=== PATIENT | female | born 1990 | race Caucasian/White ===

== ENCOUNTER 2020-05-24 06:55 | Inpatient (IN) | payer MEDICAID, SELFPAY ==
[2020-05-24] VITALS (69 sets, daily range): BP systolic 0–128; BP diastolic 0–85; PULSE 46–84; RESP 16–18; TEMP 36.3–37; O2SAT 85–100; BMI 27.6
[2020-05-24 05:12] LABS: Amphetamines Screen Urine Negative (Negative); Barbiturates Screen Urine Negative (Negative); Benzodiazepines Screen Urine Negative (Negative); Cocaine Screen Urine Negative (Negative); Opiate Screen Urine Negative (Negative); PCP Screen Urine Negative (Negative); THC Screen Urine Negative (Negative)
[2020-05-24 07:29] LABS: Basophils % 0.3 %; Eosinophils # 0.1 10^3/uL (0.0-0.8); Eosinophils % 0.6 %; Hemoglobin 10.8 g/dL (11.5-15.3); Lymphocytes # 2.6 10^3/uL (0.8-4.8); Lymphocytes % 21.9 %; Mean Corpuscular HGB Conc 32.7 g/dL (30.0-36.0); Mean Corpuscular Hemoglobin 31.1 pg (28.0-34.0); Mean Corpuscular Volume 95.1 fL (81-99); Mean Platelet Volume 11.6 fL (7.4-10.4); Monocytes # 0.8 10^3/uL (0.2-0.9); Monocytes % 6.7 %; Neutrophils # 8.35 10^3/uL (1.8-7.7); Neutrophils % 69.9 %; Nucleated Red Blood Cells % 0 %; Platelet Count 235 10^3/cmm (130-400); Red Blood Count 3.47 10^6/uL (4.1-5.3); Red Cell Distribution Width 12.6 % (12.1-15.1); White Blood Count 11.9 10^3/uL (4.0-10.0)
[2020-05-24] MEDS: lactated ringers 1,000 ML 999 ML IV (08:07)
--- NOTE | 2020-05-24 08:25 | ANES.PREANE2 ---
Pre-Anesthetic Assessment Pre-Anesthetic Assessment: Height/Weight: Height 1.75 m Weight 84.822 kg Temp Pulse Resp BP Pulse Ox 98.6 F 61 18 117/66 98 05/24/20 04:46 05/24/20 08:22 05/24/20 04:46 05/24/20 08:22 05/24/20 08:22 Preop Diagnosis: IUP Proposed Procedure: epidural Familial anesthetic complications: none Was Beta Avelino taken within 24 hours: N/A Social: Social History: No alcohol and No tobacco Exam: Pre-Anes Outpt Exam: alert, oriented x 3, clear to auscultation bilaterally and regular rate & rhythm Airway: Cervical ROM: WNL MP: 2 Dentition: Full Pulmonary: Pulmonary: None reported CV/HEM: CV/HEM: None reported : : None reported Hepatic: Hepatic: None reported GI: GI: None reported Metabolic: Metabolic: None reported Anesthetic Plan: ASA status: 2 Anesthesia: Regional (specify below) Risk of > 500 ml blood loss (7ml/kg in children): Yes, adequate IV access and fluids planned Meds/Allergies Current Medications: Current Medications Generic Name Dose Route Start Last Admin Trade Name Freq PRN Reason Stop Dose Admin Lactated Ringer's 1,000 mls @ 999 m ls/hr 05/24/20 07:38 05/24/20 08:07 Lactated Ringers IV 05/24/20 08:38 999 mls/hr .Q1H1M ONE Administration Ropivacaine 200 mg in 100 mls @ 13 mls/hr 05/24/20 07:45 05/24/20 08:14 Naropin Premix EPIDURAL 13 mls/hr .[id number] SAY Administration PFSH Anesthesia Female Reproductive History: : 3 Data Anesthesia CBC & Chem 7: 05/24/20 06:55 Other Labs: Laboratory Results - last 48 hr 05/24/20 05/24/20 04:35 06:55 WBC 11.9 H RBC 3.47 L Hgb 10.8 L Hct 33.0 L MCV 95.1 MCH 31.1 MCHC 32.7 RDW 12.6 Plt Count 235 MPV 11.6 H Neut % (Auto) 69.9 Lymph % (Auto) 21.9 Seneca % (Auto) 6.7 Eos % (Auto) 0.6 Baso % (Auto) 0.3 Neut # (Auto) 8.35 H Lymph # (Auto) 2.6 Seneca # (Auto) 0.8 Eos # (Auto) 0.1 Baso # (Auto) 0.0 Nucleated RBC % (auto) 0 Nucleated RBCs # 0.0 Urine Opiates Screen Negative Ur Barbiturates Screen Negative Ur Phencyclidine Scrn Negative Ur Amphetamines Screen Negative U Benzodiazepines Scrn Negative Urine Cocaine Screen Negative U Marijuana (THC) Screen Negative Cardiac Studies: No Data to Display
--- NOTE | 2020-05-24 08:26 | ANES.PROC ---
Anesthesia Procedures Procedure/Date: 05/24/20 Epidural: Time Out Performed: Yes Consents Signed: Procedure Consent and NPO Consent Consent: requested by attending/covering physician, from patient, risks and benefits reviewed and patient agrees to proceed Lumbar Level: L3-L4 Epidural position: sitting Epidural procedure: sterile prep of area, 1% lidocaine to numb the area, 18 g needle, negative for paresthesia passed, neg for paresthesia, test dose given, 1.5% xylocaine 1:200k epi (3 ml), placed PCEA, no systemic response, sterile dressing applied, L.U.D. no apparent complications and 0.2% Ropiavacaine @ mls/hr (13) Additional Comments: BALBINA at 4 cm, bupivciaine 0.25% 8 cc w/ fentanyl 100 mcg givne via epidural with several pain free contractions to follow
[2020-05-24] MEDS: oxytocin 30 UNIT/500 ML BAG IV (09:16)
[2020-05-24] MEDS: dextrose 5%-lactated ringers 1,000 ML 125 ML IV (09:16)
--- NOTE | 2020-05-24 12:23 | PM.DELIVERY ---
Delivery Note: Date of delivery: May 24, 2020 Delivery: - PRE-DELIVERY DIAGNOSIS: 30-year-old 3 para 2-0-0-2 at 39 weeks and 4 days gestation GBS negative Outside care Rh- Multiparity desiring permanent sterilization POST-DELIVERY DIAGNOSIS: Vaginal delivery on 05/24/2020 Multiparity desiring interval sterilization PROCEDURE: Vaginal delivery on 05/24/2020 ANESTHESIA: Epidural anesthesia DELIVERING PHYSICIAN: Ayesha Mccauley FACOG PRE-DELIVERY COURSE: Ms. Do is a 30-year-old 3 para 2-0-0-2 at 39 weeks and 4 days who presented to labor and delivery and 4:30 AM on 05/24/2020 with reports of contractions every 5 minutes or strong. She had care with Dr. Ivan in [place] and was just told to go to the hospital of her choice around delivery and that the on-call doctor will take care of her. [place] [facility] [place] was noted to be 5 cm, 60% effaced and -3 station, cephalic. tracing was category 1 and she had contractions every 5 minutes. She was observed for 2 hours and during this time made some cervical change to 6 cm, 60% and -3 station. She was GBS negative. She was admitted in labor and an epidural was placed. She was comfortable after this. Artificial rupture of membranes was performed at 11 AM on 05/24/2020 with clear fluid at which time she was noted to be 6 to 7 cm, 90% and -1 station. tracing continued to be category 1. She made rapid progress and at 11:45 AM was noted to be fully dilated and +2 station and set up in lithotomy position ready to push. DELIVERY NOTE: She was set up in lithotomy position and was pushing effectively. She was noted to be +3 station and continued pushing well. The head delivered in MAYNOR position, no nuchal cord was present. The shoulders and rest of the body followed with her next push. The baby's mouth and nose were suctioned and the baby was placed on the mother's belly. Once cord pulsations stopped the cord was clamped and cut. The placenta delivered spontaneously intact with membranes and was discarded. The fundus was noted to be firm and well contracted. The vagina and cervix were inspected and no cervical or sulcal lacerations were noted. The perineum was noted to have a first-degree vaginal laceration that was repaired with 3-0 Vicryl in a continuous interlocking fashion. Good hemostasis and reapproximation was obtained. Baby girl (Jami) born at 11:58 AM on 05/24/2020 with 8/9, weighing 7 pounds 12 ounces, 3545 g, 20 inches long. Placenta was delivered spontaneously intact with membranes at 12:01 PM. Cotyledons were intact , eccentrically inserted umbilical cord with 3 vessels noted. Estimated blood loss 150 mL. Complications-none, both baby and mother were left to recovery in a stable condition. Plan is going to be for interval sterilization 5 to 6 weeks . Coding Level of Care Code Acute Clipping Marker for Jason Bentley
--- NOTE | 2020-05-24 12:28 | P.HP_ITS ---
Providers/Chief Complaint Admitting Physician: Ayesha Ledezma MD Chief Complaint: HPI CLAIMS DIRECTOR History of Present Illness Shannon Do is a 30 year old female with contractions in labor Present Details : 3 Para: 2 Labs Rubella: Immune RPR: Negative GBS: Negative Review of Systems General: Reports: 10 or more systems reviewed and unremarkable except in HPI and below Const: Denies: fever(s), chills, change in appetite, change in weight, fa tigue, malaise or change in sleep pattern Eyes: Denies: change in vision, eye discomfort, eye discharge or seeing flashes ENMT: Denies: throat pain, odynophagia, hoarseness, bleeding gums, ear discharge, nasal discharge or nasal congestion Card: Denies: chest pain, irregular heart rhythm, edema, swelling of feet/ankles, dyspnea on exertion or leg pain with exertion Resp: Denies: dyspnea, productive cough, wheezing or chest congestion GI: Denies: abdominal pain, nausea, vomiting, heartburn, diarrhea, constipation, change in bowel habits or hematochezia : Denies: flank pain, dysuria, urinary frequency, urinary urgency, urinary incontinence, genital lesions, vaginal odor, vaginal bleeding, vaginal discharge, dysmenorrhea, change in menstrual flow, prolapse symptoms, dyspareunia or sexual dysfunction Musc: Denies: neck pain, back pain, joint pain, joint swelling or muscle cramps Skin/Breast: Denies: rash, pruritus, breast tenderness, nipple discharge or breast mass Neuro: Denies: headache(s), numbness in extremities or seizure-like activity Psych: Denies: anxiety, depression, mood swings or change in appetite Endo: Denies: cold intolerance, flushing, hot flashes or change in body appearance Mike/Lymph: Denies: easy bruising, easy bleeding or enlarged lymph nodes All/Imm: Denies: urticaria, tongue swelling, acute wheezing or itchy eyes Medications/Allergies Home Medications Medication Instructions Recorded Confirmed Last Taken Type Multivitamins 1 tab PO DAILY 05/24/20 05/24/20 05/23/20 History 0800 famotidine [Pepcid] 20 mg PO BID 05/24/20 05/24/20 05/23/20 08:00 History Allergies Allergy/AdvReac Type Severity Reaction Status Date / Time No Known Allergies Allergy Verified 05/24/20 07:50 PFSH CLAIMS DIRECTOR PFSH: Medical History (Updated 05/24/20 @ 12:30 by Ayesha Ledezma MD) No pertinent past medical history Denies diabetes, asthma, hypertension, seizures, DVT/PE. PMD: None Surgical History (Updated 05/24/20 @ 12:30 by Ayesha Ledezma MD) Status post tonsillectomy At the age of 56 years old. Family History (Updated 05/24/20 @ 12:34 by Ayesha Ledezma MD) Denies family history of Diabetes Anesthesia complication Cancer Hypertension Stroke Social History (Updated 05/24/20 @ 12:35 by Ayesha Ledezma MD) Additional social history: Tobacco use: Started smoking at the age of 17 and smokes half a pack of cigarettes a day. She quit at the beginning of this and has quit for all previous pregnancies. She is not sure if she wants to stay off of cigarettes. 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 States her last methamphetamine use was in 2018. Drug screen at the beginning of the was positive for marijuana. Drug screen on labor and delivery on 05/24/2020 was negative. Alcohol use: Weekend use prior to the . None since finding out she was Other Female Reproductive History: Menstrual History Comment: Menarche at age 13 with regular 30-day cycles lasting for 5 to 7 days Sexual History: Sexual History Comment: Coitarche at age 16, less than 5 lifetime partners, has been with her current partner since 2016 STD History Comment: Denies sexually transmitted diseases. Trichomonas positive in December 2019 and was treated. Contraception: Contraception History Comment: Has used control pills in the past for contraception. Plans on tubal ligation History History History 3 Term 3 Miscarriages/Ectopic 0 0 Living Children 3 Other History: X 3 1---2007 -->vaginal delivery of a baby girl. No complications 2---2011 -->vaginal delivery of a baby girl. No complications. 3----> 05/24/2020--> full-term vaginal delivery at 39 weeks, active labor [place] Dr. [place]ccaule[place] [facility] [place] Baby girl(Jami) weighing 7 pounds 12 ounces. First- degree vaginal tear. care with Dr. Ivan in [place]. Vitals/I&O/Wt Last Vital Signs Temp 97.9 F 05/24/20 08:42 Pulse 56 L 05/24/20 12:26 Resp 17 05/24/20 08:42 BP 106/71 05/24/20 12:26 Pulse Ox 96 05/24/20 08:37 05/23/20 05/24/20 05/24/20 22:59 06:59 14:59 Intake Total 1155.117 / 1155.117 Balance 1155.117 / 1155.117 Weight last 48 hrs Weight 187 lb Weight 6.596 oz Weight 187 lb Physical Exam Narrative: EXAM NARRATIVE: General: No acute distress Data : 05/24/20 06:55 A&P Assessment and plan (1) Active labor: -Patient is full-term 39 weeks and days and is an active labor. Epidural per patient request. If she does not make appropriate cervical change after the epidural consider augmentation with Pitocin. Clinically records reviewed and within normal limits. -Marijuana use prior to and during the -we will notify DFS and medical affairs specialist -Rh--RhoGam candidate --Desires tubal ligation. I discussed with patient that especially since tubal ligation is an elective procedure I prefer to consultations and to do procedure as 6 weeks . Patient states that it does not matter and she would prefer to have it done as an interval procedure as compared to immediately . Discussed interval contraception with Depo-Provera and she agrees to this. We will revisit this issue -Labor, complications associated, possible 4, possible vaginal delivery, possible use of vacuum forceps, blood transfusion, episiotomy reviewed with patient and all her questions were answered to her satisfaction. She will accept a blood transfusion if needed. Status: Acute (2) Rh negative state in antepartum period: Status: Acute Attestations Medical Necessity Statement*: She is staying to have the baby and recover afterwards Coding Level of Care Code Acute Metallic Yarn Slitting Machine Operator for Chg Fwd Diagnoses Active labor Rh negative state in antepartum period O26.899; Z67.91 Results OB Labs LABS: --- 3 12/13/2019 Blood type: O NEGATIVE Antibody screen : Negative Intake CBC: 7.9 <11.7/35.0> 343 Cystic fibrosis: Declined Rubella : Immune Varicella: Immune Hepatitis B surface antigen: Nonreactive Hepatitis C antibody: Negative RPR: Nonreactive HIV: Nonreactive Drug screen: Negative Urine culture: Negative NIPT: Not done 12/18/2019 Gonorrhea: Negative Chlamydia: Negative Trichomonas: Positive Pap smear: ASCUS Quad screen/ AFP: Not done 03/06/2020 28 week CBC: 11.6/33.4 GCT: 102 DRUG SCREEN: POSITIVE FOR MARIJUANA Antibody screen: Negative, RhoGam given 05/01/2020 GBS: Negative PAP Denies abnormal Pap smears in the past until this . 12/18/2019-----( Dr. Ivan/[facility])----> ASCUS--patient is unsure of what the follow-up is and thinks it is repeat Pap smear
[2020-05-24] MEDS: lanolin oint 7 gm 1 APPLIC TOPICAL (14:37)
[2020-05-24] MEDS: benzocaine-menthol 78 gm Canister 1 SPRAY TOPICAL (14:41)
--- NOTE | 2020-05-24 15:10 | PC.NURSE ---
Pt up to bathroom with minimal assistance. Void well. Tonie care performed. Gown/pad changed. Pt then to room 205 via wheelchair. Oriented to room/call light. Formula provided at moms request.
[2020-05-24] MEDS: docusate sodium 100 mg Capsule PO (17:06)
[2020-05-24] MEDS: HYDROcodone-acetaminophen 5-325 mg Tablet 1 TAB PO (17:07)
[2020-05-25 00:30] LABS: Hematocrit 30.3 % (37.0-47.0); Mean Corpuscular Hemoglobin 31.4 pg (28.0-34.0); Mean Corpuscular Volume 95.3 fL (81-99); Mean Platelet Volume 11.8 fL (7.4-10.4); Platelet Count 189 10^3/cmm (130-400); Red Blood Count 3.18 10^6/uL (4.1-5.3); Red Cell Distribution Width 12.4 % (12.1-15.1); White Blood Count 8.8 10^3/uL (4.0-10.0)
[2020-05-25] MEDS: HYDROcodone-acetaminophen 5-325 mg Tablet 1 TAB PO ×2 (04:26→11:18)
[2020-05-25 06:00] VITALS: BP 115/72; PULSE 50; RESP 16; TEMP 36.7; O2SAT 100
[2020-05-25] MEDS: docusate sodium 100 mg Capsule PO (08:11)
[2020-05-25] MEDS: prenatal vitamin Capsule 1 CAP PO (08:11)
[2020-05-25 10:41] VITALS: BP 106/52; PULSE 52; RESP 16; TEMP 36.8
--- NOTE | 2020-05-25 12:34 | PM.DCS ---
Discharge Providers Date of Admission: 05/24/20 06:55 Date of Discharge: May 25, 2020 Attending Provider at Admission: Ayesha Ledezma MD Attending Provider at Discharge: Ayesha Ledezma MD Diagnoses at Discharge Discharge Diagnosis (1) Active labor: Status: Acute (2) Rh negative state in antepartum period: Status: Acute Reason for Visit Reason for Visit: Hospital Course Discharge Summary: PRE-DELIVERY DIAGNOSIS: 30-year-old 3 para 2-0-0-2 at 39 weeks and 4 days gestation GBS negative Outside care Rh- Multiparity desiring permanent sterilization POST-DELIVERY DIAGNOSIS: Vaginal delivery on 05/24/2020 Multiparity desiring interval sterilization PROCEDURE: Vaginal delivery on 05/24/2020 ANESTHESIA: Epidural anesthesia DELIVERING PHYSICIAN: Ayesha Mccauley FACOG PRE-DELIVERY COURSE: Ms. Do is a 30-year-old 3 para 2-0-0-2 at 39 weeks and 4 days who presented to labor and delivery and 4:30 AM on 05/24/2020 with reports of contractions every 5 minutes or strong. She had care with Dr. Ivan in [place] and was just told to go to the hospital of her choice around delivery and that the on-call doctor will take care of her. [place] [facility] [place] was noted to be 5 cm, 60% effaced and -3 station, cephalic. tracing was category 1 and she had contractions every 5 minutes. She was observed for 2 hours and during this time made some cervical change to 6 cm, 60% and -3 station. She was GBS negative. She was admitted in labor and an epidural was placed. She was comfortable after this. Artificial rupture of membranes was performed at 11 AM on 05/24/2020 with clear fluid at which time she was noted to be 6 to 7 cm, 90% and -1 station. tracing continued to be category 1. She made rapid progress and at 11:45 AM was noted to be fully dilated and +2 station and set up in lithotomy position ready to push. DELIVERY NOTE: She was set up in lithotomy position and was pushing effectively. She was noted to be +3 station and continued pushing well. The head delivered in MAYNOR position, no nuchal cord was present. The shoulders and rest of the body followed with her next push. The baby's mouth and nose were suctioned and the baby was placed on the mother's belly. Once cord pulsations stopped the cord was clamped and cut. The placenta delivered spontaneously intact with membranes and was discarded. The fundus was noted to be firm and well contracted. The vagina and cervix were inspected and no cervical or sulcal lacerations were noted. The perineum was noted to have a first-degree vaginal laceration that was repaired with 3-0 Vicryl in a continuous interlocking fashion. Good hemostasis and reapproximation was obtained. Baby girl Ron) born at 11:58 AM on 05/24/2020 with 8/9, weighing 7 pounds 12 ounces, 3545 g, 20 inches long. Placenta was delivered spontaneously intact with membranes at 12:01 PM. Cotyledons were intact , eccentrically inserted umbilical cord with 3 vessels noted. Estimated blood loss 150 mL. Complications-none, both baby and mother were left to recovery in a stable condition. Plan is going to be for interval sterilization 5 to 6 weeks vs [facility]: She underwent an uncomplicated vaginal delivery on 05/24/2020. She did well on day 0 and was ambulating well, tolerating regular diet, voiding freely, passing flatus. She was breast-feeding without difficulty and bonding well with her daughter. Pain was well-controlled with by mouth pain medication. She denied nausea, vomiting, fever, chills, shortness of breath, leg pain. She had moderate vaginal bleeding. On day # 1 she continued to do well with stable vital signs and stable hemoglobin at 10.0. She was discharged home on day 1 in a stable condition, as she desired early discharge. Warning signs for endometritis, mastitis, DVT/PE were reviewed with her. Post delivery activity restrictions were also reviewed with her at all her questions were answered to her satisfaction. She had initially desired sterilization however after counseling was unsure and will call me if she desires to proceed with sterilization but is now considering long-acting reversible options. EXAM AT DISCHARGE: Gen.: No acute distress Heart: S1-S2 heard, regular rate and rhythm Lungs: Clear to auscultation bilaterally Abdomen: Soft, fundus firm below umbilicus, Legs: No calf tenderness, trace bilateral pedal edema. CONDITION AT DISCHARGE: Stable Physical Exam Urinary Catheter Management^: Lazo: Cath Placed During This Visit: yes, but has since been removed by the nurse Reason for Continuing Indwelling Catheter: Decision to DC Catheter Urinary Catheter Date of Insertion: 05/24/20 Urinary Catheter Time of Insertion: 09:10 Date Urinary Catheter Removed: 05/24/20 Time Urinary Catheter Discontinued: 11:55 Discharge Data Data Completed and Pending: Labs from last 24 hours 05/25/20 05/25/20 05/24/20 00:15 00:15 06:55 WBC 8.8 RBC 3.18 L Hgb 10.0 L Hct 30.3 L MCV 95.3 MCH 31.4 MCHC 33.0 RDW 12.4 Plt Count 189 MPV 11.8 H Blood Type O Negative Rho(D) Type Negative Antibody Screen Negative Screen Negative Vitals: Last Vital Signs Temp 98.2 F 05/25/20 10:41 Pulse 52 L 05/25/20 10:41 Resp 16 05/25/20 10:41 BP 106/52 05/25/20 10:41 Pulse Ox 100 05/25/20 06:00 Discharge Plan Discharge Patient Disposition: Home Condition: Stable Prescriptions: New docusate sodium 100 mg Capsule 100 mg PO BID PRN (Reason: constipation) Qty: 30 RF: 0 ibuprofen 800 mg tablet 800 mg PO Q8H Qty: 15 RF: 0 No Action Pepcid 20 mg Tablet 20 mg PO BID RF: 0 Multivitamins tablet 1 tab PO DAILY RF: 0 Discharge Orders: Discharge Order (Routine); Ordered 05/25/20 Ordered By: Ayesha Ledezma Referrals: Ayesha Ledezma MD [Physician] - (Follow-up with primary [facility] for 6-week --Dr. Ivan in [place] Follow-up with Dr. Mccauley if interested in sterilization--patient to call me at 4 weeks if she desires to proceed with surgery) Patient Instructions: Bottle Feeding Your Baby (GEN), Breast Care for the Non-breast Feeding Woman (GEN), Bleeding (GEN), OB Discharge Report, OB Food/Drug Interaction Guide, OB Home Care, OB Vaginal Deliveries - [facility] Activity Restrictions/Additional Instructions: Pelvic rest for 6 weeks No heavy lifting for 6 weeks, regular diet Discharge Attestations Time Spent in Discharge Care*: greater than 30 min Quality Metrics Clinical Quality Measures During this hospital stay, did patient experience: None Coding Level of Care Code Acute Supply Chain Manager for Chg Fwd Diagnoses Active labor Rh negative state in antepartum period O26.899; Z67.91
[2020-05-25 13:00] VITALS: BP 106/52; PULSE 52; RESP 16; TEMP 36.8
== END 2020-05-25 14:05 | disposition home or self-care (01) | DRG 807 ==
LOC: OBGYN 05-25 12:36 → OPOB 05-26 07:55
PROVIDERS: Admitting Provider Obstetrics & Gynecology; Visit Provider Obstetrics & Gynecology
DX: O70.0 First degree perineal laceration during delivery (principal); Z37.0 Single live birth; Z3A.39 39 weeks gestation of pregnancy
CPT/HCPCS: 12345; 36415; 51702; 59025; 59409; 80306; 85025; 85027; 85460; 86850; 86900; 90384; 96372; 99211; J2795

== ENCOUNTER → 2023-06-01 08:39 | Outpatient (BNVA) | payer MEDICAID, SELFPAY | PROVIDERS: Visit Provider Obstetrics & Gynecology | DX: Z34.90 Encounter for supervision of normal pregnancy, unspecified, unspecified trimester (principal) | CPT/HCPCS: 81000 ==

== ENCOUNTER → 2023-06-16 15:35 | Outpatient (BNVA) | payer MEDICAID, SELFPAY | PROVIDERS: Visit Provider Obstetrics & Gynecology | DX: Z34.80 Encounter for supervision of other normal pregnancy, unspecified trimester (principal) | CPT/HCPCS: 76816 ==

== ENCOUNTER → 2023-06-20 16:10 | Outpatient (BNVA) | payer MEDICAID, SELFPAY | PROVIDERS: Visit Provider Obstetrics & Gynecology | DX: Z34.80 Encounter for supervision of other normal pregnancy, unspecified trimester (principal) | CPT/HCPCS: 81000; 84443 ==

== ENCOUNTER → 2023-06-28 09:27 | Outpatient (BNVA) | payer MEDICAID, SELFPAY | PROVIDERS: Visit Provider Obstetrics & Gynecology | DX: Z34.80 Encounter for supervision of other normal pregnancy, unspecified trimester (principal) | CPT/HCPCS: 81000; 87081 ==

== ENCOUNTER → 2023-07-05 08:39 | Outpatient (BNVA) | payer MEDICAID, SELFPAY | PROVIDERS: Visit Provider Nurse Practitioner Women's Health | DX: Z34.80 Encounter for supervision of other normal pregnancy, unspecified trimester (principal) | CPT/HCPCS: 81000 ==

== ENCOUNTER 2023-07-07 14:15 | Inpatient (IN) | payer MEDICAID, SELFPAY ==
[2023-07-07] VITALS (51 sets, daily range): BP systolic 106–162; BP diastolic 56–84; PULSE 54–91; RESP 16–18; TEMP 36.3; O2SAT 85–100; BMI 25.4
[2023-07-07 15:49] LABS: Basophils % 0.4 %; Eosinophils # 0.1 10^3/uL (0.0-0.8); Eosinophils % 0.6 %; Hematocrit 31.9 % (36-47); Lymphocytes # 1.9 10^3/uL (0.8-4.8); Lymphocytes % 23.6 %; Mean Corpuscular Hemoglobin 28.5 pg (27-33); Mean Corpuscular Volume 89.1 fl (85-98); Mean Platelet Volume 11.5 fL (7.4-10.4); Monocytes # 0.6 10^3/uL (0.2-0.9); Monocytes % 7.8 %; Neutrophils # 5.43 10^3/uL (1.8-7.7); Nucleated Red Blood Cells % 0 %; Platelet Count 338 10^3/cmm (157-399); Red Blood Count 3.58 10^6/uL (3.85-5.65); Red Cell Distribution Width 13.5 % (12.1-15.1)
--- NOTE | 2023-07-07 16:20 | P.HP_ITS ---
Providers/Chief Complaint Admitting Physician: Allen Smallwood MD Primary LOGISTICS PROJECT MANAGER: Allen Smallwood MD Chief Complaint: C/O CONTRACTIONS HPI LOGISTICS PROJECT MANAGER History of Present Illness 33 y.o. EDC July 11, 2023 At 39 w 3 d Transfer of care from [facility] No complications + active movements Presented to L&D c/o painful UCs No bleeding or fluid leakage h/o x three, uncomplicated PMHx: none PSHx: T&A Meds: vitamins Present Details : 4 Para: 3 Labs Rubella: Immune RPR: Negative GBS: Negative Medications/Allergies Home Medications Medication Instructions Recorded Confirmed Last Taken Type Multivitamins 1 tab PO DAILY 05/24/20 06/28/23 05/23/20 History 0800 Allergies Allergy/AdvReac Type Severity Reaction Status Date / Time No Known Allergies Allergy Verified 07/05/23 08:05 PFSH LOGISTICS PROJECT MANAGER PFSH: Medical History No pertinent past medical history Denies diabetes, asthma, hypertension, seizures, DVT/PE. PMD: None Surgical History Status post tonsillectomy At the age of 56 years old. Family History Denies family history of Diabetes Anesthesia complication Cancer Hypertension Stroke Social History Additional social history: Tobacco use: Started smoking at the age of 17 and smokes half a pack of cigarettes a day. She quit at the beginning of this and has quit for all previous pregnancies. She is not sure if she wants to stay off of cigarettes. 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 States her last methamphetamine use was in 2018. Drug screen at the beginning of the was positive for marijuana. Drug screen on labor and delivery on 05/24/2020 was negative. Alcohol use: Weekend use prior to the . None since finding out she was History History History 3 Term 3 0 Miscarriages/Ectopic 0 Living Children 3 Care MEGHAN Calculator Estimated Delivery Date Method Current WG Current Estimate 07/11/23 Manual 39w 5d Vitals/I&O/Wt Last Vital Signs Temp 98.1 F 07/09/23 04:35 Pulse 55 L 07/09/23 04:35 Resp 16 07/09/23 04:35 BP 113/72 07/09/23 04:35 Pulse Ox 98 07/08/23 22:12 O2 Del Method Room Air 07/08/23 22:12 Weight last 48 hrs Weight 172 lb Physical Exam Const: COMMON NORMALS: no acute distress, average body habitus, patient oriented x3, healthy appearing and alert Resp: COMMON NORMALS: normal respiratory effort, No use of accessory muscles and clear to auscultation bilaterally Cardio: COMMON NORMALS: regular rate and regular rhythm GI: COMMON NORMALS: Normal to inspection, nondistended, normoactive bowel sounds present and non-tender OTHER: fundal height 36 cm : OTHER: Cervix 4 cm / 50% / -3 station / cephalic Urinary Catheter Management: Lazo: Cath Placed During This Visit: yes, but has since been removed by the nurse Reason for Continuing Indwelling Catheter: Accurate Measurement of Urinary Output in Critically Ill Patients Urinary Catheter Date of Insertion: 07/07/23 Urinary Catheter Time of Insertion: 20:16 Date Urinary Catheter Removed: 07/08/23 Time Urinary Catheter Discontinued: 23:00 Data 07/08/23 10:51 Other data: GBS 8-29- negative A&P Assessment and plan (1) Supervision of other normal : 39 w 3 d active labor plan admit expectant management fetus reassuring (2) Rh negative status during : Attestations Medical Necessity Statement*: patient at term, active labor Coding Level of Care Code Acute Code for Chg Fwd Diagnoses Supervision of other normal Z34.80 Rh negative status during O26.899; Z67.91 Time Spent (min) 30
[2023-07-07 17:09] LABS: Amphetamines Screen Urine Negative (Negative); Barbiturates Screen Urine Negative (Negative); Benzodiazepines Screen Urine Negative (Negative); Cocaine Screen Urine Negative (Negative); Opiate Screen Urine Negative (Negative); PCP Screen Urine Negative (Negative); THC Screen Urine Positive (Negative)
[2023-07-07] MEDS: lactated ringers 1,000 ML 999 ML IV (18:04)
--- NOTE | 2023-07-07 19:10 | ANES.PREANE2 ---
Pre-Anesthetic Assessment Height/Weight: Height 1.75 m Weight 78.018 kg Temp Pulse Resp BP Pulse Ox O2 Del Method 97.3 F L 76 18 108/59 100 Room Air 07/07/23 19:28 07/07/23 19:36 07/07/23 14:15 07/07/23 19:33 07/07/23 19:36 07/07/23 14:15 Preop Diagnosis: IUP epidural Familial anesthetic complications: none Was Beta Avelino taken within 24 hours: N/A Was Clonidine taken within 24 hours: N/A Social No alcohol and No tobacco Exam alert and oriented x 3 Airway Submandibular: within normal limits Cervical ROM: within normal limits Mallampati: Class I Dentition: full History/ROS No significant complaints Anesthetic Plan ASA status: 2 Anesthesia: Anesthesia Evaluation and Regional (specify below) (epidural) Medications/Allergies Home Medications Medication Instructions Recorded Confirmed Last Taken Type Multivitamins 1 tab PO DAILY 05/24/20 06/28/23 05/23/20 History 0800 Allergies Allergy/AdvReac Type Severity Reaction Status Date / Time No Known Allergies Allergy Verified 07/05/23 08:05 Current Medications Generic Name Dose Route Start Last Admin Trade Name Freq PRN Reason Stop Dose Admin Lactated Ringer's 1,000 mls @ 999 mls/hr 07/07/23 17:56 07/07/23 19:18 Lactated Ringers IV 125 mls/hr .Q1H1M PRN Administration See label comments Ropivacaine 100 mg in 50 mls @ 10 mls/hr 07/07/23 18:00 07/07/23 19:27 Naropin Syringe EPIDURAL 13 mls/hr .Q5H SAY Administration PFSH Anesthesia Medical History No pertinent past medical history Denies diabetes, asthma, hypertension, seizures, DVT/PE. PMD: None Surgical History Status post tonsillectomy At the age of 56 years old. Family History Denies family history of Diabetes Anesthesia complication Cancer Hypertension Stroke Social History Additional social history: Tobacco use: Started smoking at the age of 17 and smokes half a pack of cigarettes a day. She quit at the beginning of this and has quit for all previous pregnancies. She is not sure if she wants to stay off of cigarettes. 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 States her last methamphetamine use was in 2018. Drug screen at the beginning of the was positive for marijuana. Drug screen on labor and delivery on 05/24/2020 was negative. Alcohol use: Weekend use prior to the . None since finding out she was Female Reproductive History : 4 Data Anesthesia 07/07/23 15:01 Short CBC 07/07/23 Range/Units 15:01 WBC 8.10 (3.29-11.43) 10^3/uL Hgb 10.20 L (11.27-16.99) g/dL Hct 31.9 L (36-47) % MCV 89.1 (85-98) fl Plt Count 338 (157-399) 10^3/cmm Neut % (Auto) 67.0 % Neut # (Auto) 5.43 (1.8-7.7) 10^3/uL Cardiac Studies: No Data to Display
[2023-07-07] MEDS: lactated ringers 1,000 ML 125 ML IV (19:18)
--- NOTE | 2023-07-07 19:25 | P.ANES_ITS ---
Anesthesia Procedures Procedure/Date: 07/07/23 Epidural: Time Out Performed: Yes Consents Signed: Procedure Consent Consent: from patient, risks and benefits reviewed and patient agrees to proceed Lumbar Level: L3-L4 Epidural position: sitting Epidural procedure: sterile prep of area, 1% lidocaine to numb the area, 18 g needle, negative for p aresthesia passed, neg for paresthesia, test dose given, 1.5% xylocaine 1:200k epi, placed PCEA, no systemic response, sterile dressing applied and 0.2% Ropiavacaine @ mls/hr (13) Additional Comments: BALBINA at 4, taped at 10 at skin. negative blood/CSF upon aspiration.
[2023-07-07] MEDS: ROPivacaine syringe 100 MG/50 ML SYRINGE 13 MG EPIDURAL ×2 (19:27→22:22)
[2023-07-07] MEDS: oxytocin 30 UNIT/500 ML BAG IV (21:48)
[2023-07-07] MEDS: oxytocin 30 UNIT/500 ML BAG 600 UNIT IV (23:08)
--- NOTE | 2023-07-07 23:35 | PM.DELIVERY ---
Delivery Note: Date of delivery: July 07, 2023 Pre-delivery diagnoses: 39 w 3 d active labor Post-delivery diagnoses: Same, delivered Procedure: Spontaneous vaginal delivery Op report anesthesia: Epidural Delivering Physician: Allen Smallwood MD Estimated blood loss (mL): 300 Findings: vigorous normal placenta and cord cord blood obtained no episiotomy or lacerations Pre-Delivery Course: no complications patient presented with active labor progressed to complete Delivery: vaginal delivery Post-Delivery Status: good History History History 3 Term 3 0 Miscarriages/Ectopic 0 Living Children 3 A&P Assessment and plan (1) Supervision of other normal : 39 w 3 d (2) Rh negative status during : plan rhogam (3) Vaginal delivery: plan care Coding Level of Care Code Acute Code for Chg Fwd Diagnoses Supervision of other normal Z34.80 Rh negative status during O26.899; Z67.91 Vaginal delivery O80 Time Spent (min) 60
[2023-07-08] VITALS (15 sets, daily range): BP systolic 106–134; BP diastolic 56–83; PULSE 48–87; RESP 14–16; TEMP 36.4–37; O2SAT 97–100
[2023-07-08] MEDS: HYDROcodone-acetaminophen 5-325 mg Tablet PO (05:18)
[2023-07-08] MEDS: ibuprofen 800 mg tablet PO ×3 (09:08→20:35)
[2023-07-08] MEDS: prenatal vitamin Capsule 1 CAP PO (09:08)
[2023-07-08] MEDS: docusate sodium 100 mg Capsule PO ×2 (09:09→16:25)
[2023-07-08 11:03] LABS: Hematocrit 28.9 % (36-47); Mean Corpuscular HGB Conc 31.8 g/dL (30-55); Mean Corpuscular Hemoglobin 28.7 pg (27-33); Mean Platelet Volume 11.4 fL (7.4-10.4); Platelet Count 293 10^3/cmm (157-399); Red Blood Count 3.21 10^6/uL (3.85-5.65); Red Cell Distribution Width 13.4 % (12.1-15.1)
--- NOTE | 2023-07-08 12:35 | P.PN_ITS ---
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 fundus firm Ext: no edema; nontender Urinary Catheter Management: Lazo: Cath Placed During This Visit: yes, but has since been removed by the nurse Reason for Continuing Indwelling Catheter: Accurate Measurement of Urinary Output in Critically Ill Patients Urinary Catheter Date of Insertion: 07/07/23 Urinary Catheter Time of Insertion: 20:16 Date Urinary Catheter Removed: 07/08/23 Time Urinary Catheter Discontinued: 23:00 Data 07/08/23 10:51 A&P Assessment and plan (1) Vaginal delivery: continue care Attestations Medical Necessity Statement*: patient s/p Coding Level of Care Code Acute Code for Chg Fwd Diagnoses Vaginal delivery O80 Time Spent (min) 15
[2023-07-09] VITALS (9 sets, daily range): BP systolic 109–127; BP diastolic 64–84; PULSE 47–55; RESP 15–16; TEMP 36.5–36.7
[2023-07-09] MEDS: lactated ringers 1,000 ML 999 ML IV (07:08)
[2023-07-09] MEDS: famotidine 20 mg/2 mL INJ IVP (07:49)
[2023-07-09] MEDS: metoclopramide 5 mg/mL SDV 2 mL 10 MG IVP (07:50)
[2023-07-09] MEDS: citric acid-sodium citrate 30 mL UDC PO (07:50)
--- NOTE | 2023-07-09 08:00 | PC.NURSE ---
Pt ambulated to OR2 with RN at her side
--- NOTE | 2023-07-09 08:50 | P.OP_ITS ---
Operative Report Date of procedure: July 09, 2023 Pre-op diagnosis: 1. Desiring elective sterilization ( day #2) 2. S/p viable female Post-op diagnosis: Same 3. bilateral fimbriectomy Post-op findings: Normal uterus tubes and ovaries Procedure done: sterilization Bilateral fimbriectomy Specimens removed/disposition: Right and left partial salpingectomy including fimbria Surgeon: Amada Guzman DO Anesthesia: General Estimated blood loss (mL): 2 Complications: None Condition: stable Brief History: 33-year-old female G4, P4 desires elective sterilization. Patient is day #2 s/p . Patient states her family is complete and she desires no future pregnancies or children and desires elective sterilization. Risk and benefits and failure rate of the procedure have been reviewed in great extent. Patient verbalized understanding and consent has been signed. Procedure: Patient was prepared and taken to surgical suite after consultation with anesthesia. Patient was placed in supine position, general anesthesia given, abdomen prepped and draped in standard fashion. Timeout performed. Small incision with a knife was made under the umbilicus and dissected to the peritoneum. Peritoneum was entered with Metzenbaums and extended. Upon entry of the abdomen, [place] retractors were used and using a sponge stick the left fallopian tube was manipulated and visualized to the incision. It was then grasped with a Jose and teased to its fimbriated and and brought out of the incision. Hemostat was then used to clamp the mid section of the tube to includ e the fimbria. This area was then suture-ligated x2 with 0 chromic, cut and cauterized at its stump. No bleeding was noted. The remainder of the tube was released the uterus manipulated and the same procedure done on the right fallopian tube. Both tubal stumps were visualized and were hemostatically intact. Specimens will be sent to pathology, the peritoneal edges were grasped and approximated with 2-0 Vicryl. The skin was then closed with 4-0 Vicryl in a subcuticular manner. The incision then infiltrated with local anesthetic. The skin was cleansed and pressure dressing applied. Management sponge counts correct. Blood loss minimum. Complications none. Patient will be transported to recovery in stable and satisfactory condition.
[2023-07-09] MEDS: HYDROcodone-acetaminophen 5-325 mg Tablet PO (09:13)
[2023-07-09] MEDS: BUPivacaine 0.5% INJ 10 mL INJECTION (09:13)
[2023-07-09] MEDS: ibuprofen 800 mg tablet PO ×2 (09:14→14:09)
--- NOTE | 2023-07-09 09:37 | ANE.PACU2 ---
Inpatient post-anesthesia follow up: Airway intact: Yes Vital signs: Temperature 98.1 F Pulse Rate 55 Respiratory Rate 16 Blood Pressure 113/72 Pulse Oximetry 98 Oxygen Delivery Me thod Room Air Oxygen Flow Rate Fraction of Inspir ed Oxygen Hydration adequate: Yes Nausea and vomiting: No Pain level: 1 Mental status: Baseline
[2023-07-09] MEDS: acetaminophen 325 mg Tablet 650 MG PO (13:37)
--- NOTE | 2023-07-09 14:46 | P.DS_ITS ---
Discharge Providers [employer] Date of Admission: 07/07/23 14:15 Date of Discharge: 07/09/23 Attending Provider at Admission: Allen Smallwood MD Attending Provider at Discharge: Allen Smallwood MD Diagnoses at Discharge Discharge Diagnosis (1) Vaginal delivery: Status: Acute Other Information Additional DC diagnoses/information: Status post bilateral tubal sterilization? Anemia?asymptomatic Reason for Visit Reason for Visit: C/O CONTRACTIONS Hospital Course Hospital Course 33-year-old G4, P4 delivered via a viable female. Patient had requested elective sterilization. She was discharged and admitted as outpatient for continuation of care to include surgical sterilization via bilateral fimbriectomy on 07/09/2023. Patient surgical course was uncomplicated. Postoperatively oral pain medication has controlled her pain. She is tolerating a regular diet, voiding and ambulating without difficulty. She is able to care for the baby without assistance. Discharge instructions have been reviewed of no heavy lifting pushing pulling no sexual intercourse douching or tampons. She is to follow-up with Dr. Smallwood in 2 to 4 weeks. She is to shower daily keeping her incision clean and dry. Discharge pain medication has been reviewed and she may supplement with Tylenol and ibuprofen as needed. Risk of constipation with pain medication has also been reviewed, patient states she has MiraLAX at home if needed. Information Peripartum Data: Delivery Method: Vaginal Physical Exam Urinary Catheter Management: Lazo: Cath Placed During This Visit: yes, but has since been removed by the nurse Reason for Continuing Indwelling Catheter: Accurate Measurement of Urinary Output in Critically Ill Patients Urinary Catheter Date of Insertion: 07/07/23 Urinary Catheter Time of Insertion: 20:16 Date Urinary Catheter Removed: 07/08/23 Time Urinary Catheter Discontinued: 23:00 History History History 4 Term 4 0 Miscarriages/Ectopic 0 Living Children 4 Discharge Data Studies Completed and Pending Pending at discharge Category Date Time Status Pathology: Surgical [PTH] Routine Pth 07/09/23 10:08 Ordered Laboratory Results WBC 9.80 10^3/uL (3.29-11.43) 07/08/23 10:51 RBC 3.21 10^6/uL (3.85-5.65) L 07/08/23 10:51 Hgb 9.20 g/dL (11.27-16.99) L 07/08/23 10:51 Hct 28.9 % (36-47) L 07/08/23 10:51 MCV 90.0 fl (85-98) 07/08/23 10:51 MCH 28.7 pg (27-33) 07/08/23 10:51 MCHC 31.8 g/dL (30-55) 07/08/23 10:51 RDW 13.4 % (12.1-15.1) 07/08/23 10:51 Plt Count 293 10^3/cmm (157-399) 07/08/23 10:51 MPV 11.4 fL (7.4-10.4) H 07/08/23 10:51 Neut % (Auto) 67.0 % 07/07/23 15:01 Lymph % (Auto) 23.6 % 07/07/23 15:01 [place] % (Auto) 7.8 % 07/07/23 15:01 Eos % (Auto) 0.6 % 07/07/23 15:01 Baso % (Auto) 0.4 % 07/07/23 15:01 Neut # (Auto) 5.43 10^3/uL (1.8-7.7) 07/07/23 15:01 Lymph # (Auto) 1.9 10^3/uL (0.8-4.8) 07/07/23 15:01 [place] # (Auto) 0.6 10^3/uL (0.2-0.9) 07/07/23 15:01 Eos # (Auto) 0.1 10^3/uL (0.0-0.8) 07/07/23 15:01 Baso # (Auto) 0.0 10^3/uL (0.0-0.1) 07/07/23 15:01 Nucleated RBC % (auto) 0 % 07/07/23 15:01 Nucleated RBCs # 0.0 /100WBC 07/07/23 15:01 Urine Opiates Screen Negative ng/mL (Negative) 07/07/23 16:50 Ur Barbiturates Screen Negative ng/mL (Negative) 07/07/23 16:50 Ur Phencyclidine Scrn Negative ng/mL (Negative) 07/07/23 16:50 Ur Amphetamines Screen Negative ng/mL (Negative) 07/07/23 16:50 U Benzodiazepines Scrn Negative ng/mL (Negative) 07/07/23 16:50 Urine Cocaine Screen Negative ng/mL (Negative) 07/07/23 16:50 U Marijuana (THC) Screen Positive ng/mL (Negative) H 07/07/23 16:50 Blood Type O Negative 07/07/23 15:01 Rho(D) Type Negative 07/07/23 15:01 Antibody Screen Negative 07/07/23 15:01 Screen Negative (Negative) 07/08/23 10:51 Procedures Performed Bilateral fimbriectomy? for tubal sterilization Vitals Last Vital Signs Temp 97.7 F 07/09/23 09:10 Pulse 47 L 07/09/23 09:25 Resp 16 07/09/23 09:25 BP 121/73 07/09/23 09:25 Pulse Ox 98 07/08/23 22:12 O2 Del Method Room Air 07/08/23 22:12 Discharge Plan Discharge Patient Disposition: Home Condition: Stable Prescriptions: New hydrocodone-acetaminophen 5-325 mg Tablet 1 - 2 tab PO Q6H PRN (Reason: Moderate To Severe Pain) Qty: 10 0RF ibuprofen 800 mg Tablet 800 mg PO TID Qty: 10 0RF ferrous sulfate 325 mg (65 mg iron) tablet 325 mg PO BID Qty: 60 1RF Continued Multivitamins tablet 1 tab PO DAILY Discharge Orders: Discharge Order (Routine); Ordered 07/09/23 Ordered By: Amada Guzman Referrals: Allen Smallwood MD [Physician] - 07/26/23 3:15 pm (Patient to see Dr. Smallwood for tubal follow up appointment on July 26 at 3:15 PM Patient to see Dr. Smallwood for six week follow up appointment on August 16 at 2:00 PM) Patient Instructions: Hydrocodone/Acetaminophen (By mouth) (Vicodin, [place], Lortab), Depression (GEN), Bleeding (GEN), Tubal Ligation (GEN), Hemorrhage (GEN), OB Laproscopic Surgery - [facility], OB Food/Drug Interaction Guide, OB Care at Home, Opioid Safety, OB Home Care, OB Vaginal Deliveries - [facility], Abnormal Bleeding Discharge Attestations [employer] Time Spent in Discharge Care*: less than 30 min Coding Level of Care Code Acute Code for Chg Fwd Diagnoses Vaginal delivery O80
== END 2023-07-09 16:15 | disposition home or self-care (01) | DRG 797 ==
LOC: OBGYN 16:28
PROVIDERS: Obstetrics & Gynecology; Absent Provider Obstetrics & Gynecology; Admitting Provider Obstetrics & Gynecology; Visit Provider Obstetrics & Gynecology
PROC: 0UB70ZZ Excision of Bilateral Fallopian Tubes, Open Approach (ICD-10-PCS; CPT 58605; principal; 2023-07-09 08:00)
DX: O36.0930 Maternal care for other rhesus isoimmunization, third trimester, not applicable or unspecified (principal); O99.324 Drug use complicating childbirth; Z37.0 Single live birth; Z3A.39 39 weeks gestation of pregnancy; Z30.2 Encounter for sterilization; F12.90 Cannabis use, unspecified, uncomplicated; Z87.891 Personal history of nicotine dependence
CPT/HCPCS: 36415; 36430; 51702; 58605; 59025; 59409; 80306; 85025; 85027; 85460; 86850; 86900; 88302; 90384; 96374; 96376; 98960; 99211; J0330; J1100; J2405; J2590; J2704; J2765; J2795; J3010; J3490; J7120